=== PATIENT | female | born 2000 | race Caucasian/White ===

== ENCOUNTER 2023-04-26 15:40 | Inpatient (IN) ==
[2023-04-27] MEDS ORDERED: LIDOCAINE 1% LOCAL 20 ML VIAL INFIL PRN (14:50)
[2023-04-27] MEDS ORDERED: OXYTOCIN 30 UNITS/NSS 30 UNITS/500 ML BAG IV PRN ×2 (14:50)
--- NOTE | 2023-04-27 15:05 | History & Physical Report ---
Date of Service April 27, 2023 Assessment & Plan (1) Insulin controlled gestational diabetes mellitus (GDM) during : Plan: Admit to L&D. EFM/toco. Labs. Check glucose Q2h, then hourly when in active labor. Pitocin for induction of labor. Patient agrees with plan. Admission and Anticipated Discharge Date Admission Date: April 27, 2023 History of Present Illness Chief Complaint: IOL Primary Care Provider: YELENA Nicole 23yo @ 39 05/30 here for IOL for GDMA2. Feeling well, no concerns. + movement, no vaginal bleeding. No leaking. Not feeling contractions. GDM on insulin - 10u at night *Wkly NSTs @32wks and Twice wkly @36wks *Serial growth US @28wks *Deliver by [facility]--IOL on 04/26 Allergies Allergy/AdvReac Type Severity Reaction Status Date / Time No Known Allergies Allergy Verified 04/27/23 16:03 Home Medications Medication Instructions Recorded Confirmed Type prenat.vits,chester,[id number] 1 tab PO DAILY 09/20/22 04/27/23 History acetone (urine) test (Ketone Urine #50 ea 03/02/23 04/25/23 Rx Test strips) blood sugar diagnostic (OneTouch #150 ea 03/02/23 04/25/23 Rx Verio test strips) blood-glucose meter (OneTouch #1 ea 03/02/23 04/25/23 Rx Verio Reflect Meter) lancets 33 gauge (OneTouch Delica #150 ea 03/02/23 04/25/23 Rx Plus Lancet) ferrous sulfate 65 mg PO DAILY 03/19/23 04/27/23 History pen needle, diabetic 32 gauge x #50 ea 03/23/23 04/25/23 Rx /32" (BD Ultra-Fine Meera Pen Needle) insulin NPH isoph U-100 human 100 10 unit (0.1 mL) subcut .QHS #15 mL 04/03/23 04/27/23 Rx unit/mL (3 mL) subcutaneous pen (Humulin N NPH U-100 Insulin KwikPen) Patient History Medical History Acne Hx of gastroesophageal reflux (GERD) Surgical History History of anesthesia reaction History of wisdom tooth extraction S/P arthroscopy of right shoulder Family History Mother Lupus (systemic lupus erythematosus) Grandmother [place] chorea Other Diabetes No family history of adverse response to anesthesia Denies family history of Ovarian cancer Prostate cancer Myocardial infarction Breast cancer Lung cancer Colorectal cancer Social History (Updated 01/05/23 @ 09:16 by Brandi Andrew) Smoking Status: Never smoker Second Hand Exposure: No; Do You Dip or Chew Tobacco: No; Hx Alcohol Use: Yes Alcohol type: beer and hard liquor Alcohol Intake Frequency: Monthly or Less Hx Substance Use: No Preferred Language: Turkish Communication Ability: Effective Visual Impairment: No Limitations Hearing Ability: Normal [employer] Required: No Beliefs That Will Affect Care: None marital status: Single marital status details: Brandon (31) [phone] Current Living Situation: Significant Other Current Living Situation Comment: lives with fob current occupational status: employed current occupation: [employer]- Other Information That Helps Us Care for You: No Feels Safe at Home: Yes Safety Concerns: Feels Safe At This Time Childhood Exposure to Second-Hand Smoke: No Diet: regular caffeine: No Dental Care, Regularly: Yes Physical Activity Frequency: 1-2 Times per Week Seatbelt Use: always Sunscreen Use: Yes Assistive Devices: None Review of Systems All systems reviewed & are unremarkable except as noted in HPI & below Physical Exam Physical Exam: FHT Cat 1 Benavides rare SVE 4/70/-1 Constitutional: WD/WN, vitals as above Respiratory: normal respiratory effort, lungs clear to auscultation no respiratory distress Cardiovascular: Rate/Rhythm: regular rate and regular rhythm Gastrointestinal (Abdomen): Inspection/Auscultation: abdomen normal to inspection Percussion/Palpation: abdomen soft; abdomen nontender Gravid. No s/s chorio or abruption. Skin: no rashes, warm and dry Psychiatric: A+Ox3, euthymic affect Results & Data Vital Signs (Past 12 Hours) Vital Signs Temp Pulse Resp BP 04/27/23 14:53 88 124/65 04/27/23 14:51 20 04/27/23 14:51 36.9 C 20 Coding Level of Care Code None Diagnoses Insulin controlled gestational diabetes mellitus (GDM) during O24.414
[2023-04-27 15:30] LABS: Hemoglobin 10.5 g/dl (12.0-16.0); Mean Corpuscular Hemoglobin 27.8 pg (25.0-34.0); Mean Corpuscular Hgb Conc 31.8 g/dL (32.0-36.0); Mean Corpuscular Volume 87.3 fL (80.0-100.0); Mean Platelet Volume 10.7 fL (9.4-12.4); Platelet Count 260 K/uL (130-400); RDW Coefficient of Variation 12.8 % (11.5-14.5); RDW Standard Deviation 40.6 fL (36.4-46.3); Red Blood Count 3.78 M/uL (4.20-5.40); White Blood Count 10.25 K/ul (4.8-10.8)
[2023-04-27 15:45] LABS: Alanine Aminotransferase 19 U/L (7-52); Albumin Globulin Ratio 1.1 (0.9-2); Albumin Level 3.4 gm/dl (3.4-5.0); Alkaline Phosphatase 194 U/L (34-104); Anion Gap 8 (3-11); Aspartate Aminotransferase 18 U/L (13-39); BUN Creatinine Ratio 14.6 (10-20); Bilirubin,Total 0.4 mg/dl (0.2-1.0); Blood Urea Nitrogen 7 mg/dl (6-23); Calcium 8.8 mg/dl (8.6-10.3); Carbon Dioxide 21 mmol/L (21-32); Chloride 107 mmol/L (98-107); Creatinine Clr Calc Pharmacy 235.4 ml/min; Est GFR (African American) > 150.0 ml/min; Est GFR (Non-African American) 139.2 ml/min; Globulin 3.2 gm/dl (2.5-4.0); Glucose 75 mg/dl (70-99(Fasting)); Potassium 3.9 mmol/L (3.5-5.1); Sodium 136 mmol/L (136-145); Total Protein 6.6 gm/dl (6.0-8.3)
[2023-04-27] MEDS: LACTATED RINGER'S 1,000 ML IV PRN ×2 (16:06→21:55)
[2023-04-27] MEDS ORDERED: fentaNYL citrate PF 100 MCG/2 ML VIAL ONE (21:45)
[2023-04-27] MEDS ORDERED: fentANYL 2 MCG/ML BUPIVacaine 0.125%-NSS 100ML BAG ONE (21:45)
[2023-04-27] MEDS ORDERED: ePHEDrine sulfate 50 MG/ML AMP ONE (21:45)
[2023-04-27] MEDS ORDERED: SODIUM CHLORIDE 0.9% PF INJ 10 ML VIAL ONE (21:45)
[2023-04-27] MEDS ORDERED: LIDOCAINE 2%/EPINEPHRINE 1:200,000 20 ML PF ONE (21:46)
[2023-04-27] MEDS ORDERED: BUPIVACAINE 0.25% PF 30 ML VIAL ONE (21:46)
[2023-04-27] MEDS ORDERED: SODIUM CHLORIDE 0.9% PF INJ 10 ML VIAL EPI PRN (21:51)
[2023-04-27] MEDS ORDERED: NALOXONE HCL 1 MG in SODIUM CHLORIDE 0.9% 1,000 ML IV PRN (21:51)
[2023-04-27] MEDS ORDERED: fentaNYL citrate PF 100 MCG/2 ML VIAL EPI PRN (21:51)
[2023-04-27] MEDS ORDERED: fentANYL 2 MCG/ML BUPIVacaine 0.125%-NSS 100ML BAG EPI PRN (21:51)
[2023-04-27] MEDS ORDERED: NALOXONE HCL 0.4 MG/1 ML VIAL/CARP IV PRN (21:51)
[2023-04-27] MEDS ORDERED: diphenhydrAMINE 50 MG/ML VIAL IV PRN (21:51)
[2023-04-27] MEDS ORDERED: LIDOCAINE 2%/EPINEPHRINE 1:200,000 20 ML PF EPI STA (21:51)
[2023-04-27] MEDS ORDERED: LIDOCAINE 2% MPF LOCAL 5 ML VIAL EPI PRN (21:51)
[2023-04-27] MEDS ORDERED: ePHEDrine sulfate 50 MG/ML AMP IV PRN (21:51)
[2023-04-27] MEDS ORDERED: BUPIVACAINE 0.25% PF 30 ML VIAL EPI PRN (21:51)
[2023-04-27] MEDS ORDERED: ONDANSETRON INJ 2 MG/ML 2 ML VIAL IV PRN (21:51)
[2023-04-27] MEDS ORDERED: SODIUM CHLORIDE 0.9% PF INJ 10 ML VIAL EPI STA (21:51)
[2023-04-27] MEDS ORDERED: NALBUPHINE HCL 5 MG in SYRINGE 0 ML IV PRN (21:51)
[2023-04-27] MEDS ORDERED: fentaNYL citrate PF 100 MCG/2 ML VIAL EPI STA (21:51)
[2023-04-27] MEDS ORDERED: ROPIVACAINE 0.5% PF 5 MG/ML 20 ML VIAL EPI PRN (21:51)
[2023-04-27] MEDS ORDERED: BUPIVACAINE 0.25% PF 30 ML VIAL EPI STA (21:51)
--- NOTE | 2023-04-27 21:52 | Anesthesiology Consultation ---
Date of Service April 27, 2023 Assessment & Plan (1) Encounter for pre-operative examination: Chart Review Chart Review: Patient NOT seen in Pre Admission Testing and Acceptable Risk for Labor Epidural Consults Requested none History Height/Weight Height: 5 ft 6 in Weight: 113.852 kg Allergies Allergy/AdvReac Type Severity Reaction Status Date / Time No Known Allergies Allergy Verified 04/27/23 16:03 Medications Home Medications Medication Instructions Recorded Confirmed Last Taken prenat.vits,chester,[id number] 1 tab PO DAILY 09/20/22 04/27/23 04/26/23 21:00 acetone (urine) test (Ketone Urine #50 ea 03/02/23 04/25/23 Unknown Test strips) blood sugar diagnostic (OneTouch #150 ea 03/02/23 04/25/23 Unknown Verio test strips) blood-glucose meter (OneTouch #1 ea 03/02/23 04/25/23 Unknown Verio Reflect Meter) lancets 33 gauge (OneTouch Delica #150 ea 03/02/23 04/25/23 Unknown Plus Lancet) ferrous sulfate 65 mg PO DAILY 03/19/23 04/27/23 04/26/23 21:00 pen needle, diabetic 32 gauge x #50 ea 03/23/23 04/25/23 Unknown 532" (BD Ultra-Fine Meera Pen Needle) insulin NPH isoph U-100 human 100 10 unit (0.1 mL) subcut .QHS #15 mL 04/03/23 04/27/23 04/26/23 21:00 unit/mL (3 mL) subcutaneous pen (Humulin N NPH U-100 Insulin KwikPen) Active Medications Generic Name Dose Route Start Last Admin Trade Name Freq PRN Reason Stop Dose Admin Oxytocin 30 units in 500 mls @ 17 mls/hr 04/27/23 14:50 04/27/23 21:10 Pitocin 30 Units/Nss IV 04/29/23 14:49 1.02 units/hr .Q24H PRN 17 mls/hr Labor Induction/Augmentation Titration Protocol 1.02 UNITS/HR Lactated Ringer's 1,000 mls @ 125 mls/hr 04/27/23 14:50 04/27/23 21:55 Lr IV 04/29/23 14:49 999 mls/hr .Q8H PRN Administration L&D Protocol Protocol Past Medical History Medical History (Updated 04/27/23 @ 21:52 by Hilton Arroyo MD) Encounter for pre-operative examination Gestational diabetes Acne Hx of gastroesophageal reflux (GERD) Exercise / Class Metabolic Activity II 4-5 Yardwork/Stairs/Walk up hill Past Family History Family History Mother Lupus (systemic lupus erythematosus) Grandmother [place] chorea Other Diabetes No family history of adverse response to anesthesia Denies family history of Ovarian cancer Prostate cancer Myocardial infarction Breast cancer Lung cancer Colorectal cancer Past Surgical History Surgical History S/P arthroscopy of right shoulder History of anesthesia reaction "woke up during wisdom tooth surgery" History of wisdom tooth extraction Social History Smoking Status: Never smoker Do You Dip or Chew Tobacco: No Hx Alcohol Use: Yes Alcohol type: beer and hard liquor alcohol intake frequency: a few times a month Hx Substance Use: No substance use type: does not use Physical Exam Vital Signs Last Vital Signs Temp 36.8 C 04/27/23 21:29 Pulse 102 H 04/27/23 22:12 Resp 18 04/27/23 21:29 BP 142/72 H 04/27/23 22:12 Pulse Ox 98 04/27/23 22:12 Testing Laboratory Results 04/27/23 15:08 04/27/23 15:08 Blood Type O Positive 04/27/23 15:08 Antibody Screen NEGATIVE 04/27/23 15:08 04/27/23 04/27/23 04/27/23 21:13 19:08 17:11 POC Glucose 72 72 71 04/27/23 04/27/23 15:12 15:11 POC Glucose 70 66 L*
[2023-04-28] MEDS ORDERED: DIPHTHERIA/TETANUS/PERTUSSIS Vaccine (Tdap, Age 7+yrs) 0.5mL SYR/VL IM ONE (01:21)
[2023-04-28] MEDS ORDERED: oxyCODONE/ACETAMINOPHEN 5mg/325mg TAB PO PRN (01:21)
[2023-04-28] MEDS ORDERED: OXYTOCIN 30 UNITS/NSS 30 UNITS/500 ML BAG IV PRN (01:21)
[2023-04-28] MEDS ORDERED: HYDROCORTISONE ACETATE 25 MG SUPP PR PRN (01:21)
[2023-04-28] MEDS ORDERED: ACETAMINOPHEN 325 MG TAB PO PRN (01:21)
[2023-04-28] MEDS ORDERED: IBUPROFEN 600 MG TAB PO PRN (01:21)
[2023-04-28] MEDS ORDERED: BENZOCAINE 20% SPRY 85 APPLN/85 GM CAN EXT PRN (01:21)
--- NOTE | 2023-04-28 01:30 | Delivery Summary ---
Vaginal Delivery Summary Date of Service April 28, 2023 Vaginal Delivery Summary and 2nd Degree LAC Patient is a 23-year-old 1 P0 female EDC 05/02/[birth year]23 who presented for induction at 39 weeks 3 days because of GDM on insulin. Pitocin induction was begun. Membranes were ruptured for clear fluid. She requested epidural analgesia which was effective. She progressed to full dilation with the urge to push. She pushed effectively over intact perineum for delivery of a viable male infant. After the head was delivered the posterior left arm was presenting next and was delivered. Following this, the rest the delivered easily. He was placed on the mother's abdomen for further attention and drying. He was vigorous crying and moving all 4 limbs. After cord blood was obtained, the placenta was expressed intact with a three-vessel cord. bleeding was controlled with dilute Pitocin and fundal massage. A second-degree perineal laceration was repaired with 3-0 chromic in the usual fashion. Superficial left labial laceration was not bleeding and therefore was not repaired. Estimated blood loss was 350 cc. Mother and doing well after delivery. MNP Vaginal Delivery Charge Delivery Type Details: and 2nd Degree LAC
--- NOTE | 2023-04-28 03:00 | Anesthesia Procedure Note ---
Date of Service April 28, 2023 Anesthesia Post Epidural Note Vital Signs Vital Signs: Temp Pulse Resp BP Pulse Ox 36.4 C L 86 16 106/55 L 96 04/27/23 23:33 04/28/23 02:54 04/28/23 02:39 04/28/23 02:54 04/28/23 01:27 Pain Intensity Bilateral Lower Abdomen: Pain Intensity: 2 Notes Mental Status: alert / awake / arousable and participated in evaluation Patient Amnestic to Procedure: No Nausea / Vomiting: adequately controlled Pain: adequately controlled Airway Patency, RR, SpO2: stable & adequate BP & HR: stable & adequate Hydration State: stable & adequate Neuraxial Anesthesia: was administered and sensory block is resolving Anesthetic Complications: no major complications apparent and Pt Satisfied with anesthetic care Epidural: Removed without complications and With tip intact
--- NOTE | 2023-04-28 07:37 | Obstetrical Progress Note ---
Date of Service April 28, 2023 Assessment & Plan (1) Encounter for care and examination after delivery: satisfactory recovery continue current care plan Subjective Ambulation: ambulating normally Voiding: no voiding problems Passing Gas:: Yes Diet Tolerance:: regular diet Lochia:: Moderate Feeding Type:: breast feeding doing well - no cramping Review of Systems All systems reviewed & are unremarkable except as noted in HPI & below Physical Exam Constitutional WD/WN, vitals as above Psychiatric A+Ox3, euthymic affect Genitourinary OB Exam Abdomen: + fundal height Fundus: + firm and + relation to umbilicus (at U) Results & Data Vital Signs (Past 12 Hours) Vital Signs Temp Pulse Pulse Resp BP BP Pulse Ox 04/28/23 03:52 97.9 F 96 H 14 122/74 04/28/23 03:09 98.8 F 18 04/28/23 03:09 86 105/51 L 04/28/23 02:54 86 106/55 L 04/28/23 02:39 16 04/28/23 02:39 84 107/56 L 04/28/23 02:24 95 H 104/58 L 04/28/23 02:09 16 04/28/23 02:09 96 H 109/55 L 04/28/23 01:54 16 04/28/23 01:54 90 110/59 L 04/28/23 01:39 18 04/28/23 01:39 90 109/54 L 04/28/23 01:27 98 H 96 04/28/23 01:25 18 04/28/23 01:25 91 H 102/55 L 04/28/23 01:22 112 H 95 04/28/23 01:17 104 H 95 04/28/23 01:12 107 H 96 04/28/23 01:09 18 04/28/23 01:09 100 H 97/50 L 04/28/23 01:07 98 H 95 04/28/23 01:02 104 H 97 04/28/23 00:59 99 H 115/54 L 04/28/23 00:57 98 H 96 04/28/23 00:52 109 H 78 L 04/28/23 00:47 105 H 128/60 98 04/28/23 00:42 101 H 98 04/28/23 00:41 114 H 83 L 04/28/23 00:37 96 H 98 04/28/23 00:35 122 H 85 L 04/28/23 00:32 100 H 98 04/28/23 00:30 142 H 155/97 H 04/28/23 00:29 127 H 89 L 04/28/23 00:27 108 H 100 04/28/23 00:24 106 H 86 L 04/28/23 00:22 94 H 100 04/28/23 00:17 106 H 100 04/28/23 00:15 102 H 18 143/78 H 04/28/23 00:12 92 H 99 04/28/23 00:07 82 98 04/28/23 00:02 84 97 04/28/23 00:01 83 16 116/59 L 04/27/23 23:57 82 99 04/27/23 23:52 88 99 04/27/23 23:47 81 99 04/27/23 23:45 78 117/58 L 04/27/23 23:42 85 99 04/27/23 23:37 87 99 04/27/23 23:33 18 04/27/23 23:33 97.5 F L 18 04/27/23 23:32 86 99 04/27/23 23:29 87 18 111/58 L 04/27/23 23:27 94 H 99 04/27/23 23:22 94 H 99 04/27/23 23:17 91 H 99 04/27/23 23:15 86 18 116/60 04/27/23 23:12 92 H 100 04/27/23 23:07 89 99 04/27/23 23:02 86 100 04/27/23 23:01 90 18 118/57 L 04/27/23 22:57 85 100 04/27/23 22:52 92 H 98 04/27/23 22:47 88 99 04/27/23 22:45 86 18 113/58 L 04/27/23 22:42 88 99 04/27/23 22:37 94 H 98 04/27/23 22:32 93 H 98 04/27/23 22:29 86 18 120/59 L 04/27/23 22:27 99 04/27/23 22:27 96 H 04/27/23 22:27 88 118/60 04/27/23 22:24 88 136/64 04/27/23 22:22 91 H 99 04/27/23 22:20 86 133/63 04/27/23 22:18 82 18 132/65 04/27/23 22:17 87 99 04/27/23 22:15 86 18 138/68 04/27/23 22:12 98 04/27/23 22:12 102 H 04/27/23 22:12 93 H 142/72 H 04/27/23 22:07 94 H 97 04/27/23 22:02 97 H 100 04/27/23 21:57 93 H 99 04/27/23 21:52 86 99 04/27/23 21:29 18 04/27/23 21:29 98.2 F 18 04/27/23 21:12 88 111/60 04/27/23 20:12 86 118/56 L O2 Del Method 04/28/23 03:52 Room Air 04/28/23 03:09 04/28/23 03:09 04/28/23 02:54 04/28/23 02:39 04/28/23 02:39 04/28/23 02:24 04/28/23 02:09 04/28/23 02:09 04/28/23 01:54 04/28/23 01:54 04/28/23 01:39 04/28/23 01:39 04/28/23 01:27 04/28/23 01:25 04/28/23 01:25 04/28/23 01:22 04/28/23 01:17 04/28/23 01:12 04/28/23 01:09 04/28/23 01:09 04/28/23 01:07 04/28/23 01:02 04/28/23 00:59 04/28/23 00:57 04/28/23 00:52 04/28/23 00:47 04/28/23 00:42 04/28/23 00:41 04/28/23 00:37 04/28/23 00:35 04/28/23 00:32 04/28/23 00:30 04/28/23 00:29 04/28/23 00:27 04/28/23 00:24 04/28/23 00:22 04/28/23 00:17 04/28/23 00:15 04/28/23 00:12 04/28/23 00:07 04/28/23 00:02 04/28/23 00:01 04/27/23 23:57 04/27/23 23:52 04/27/23 23:47 04/27/23 23:45 04/27/23 23:42 04/27/23 23:37 04/27/23 23:33 04/27/23 23:33 04/27/23 23:32 04/27/23 23:29 04/27/23 23:27 04/27/23 23:22 04/27/23 23:17 04/27/23 23:15 04/27/23 23:12 04/27/23 23:07 04/27/23 23:02 04/27/23 23:01 04/27/23 22:57 04/27/23 22:52 04/27/23 22:47 04/27/23 22:45 04/27/23 22:42 04/27/23 22:37 04/27/23 22:32 04/27/23 22:29 04/27/23 22:27 04/27/23 22:27 04/27/23 22:27 04/27/23 22:24 04/27/23 22:22 04/27/23 22:20 04/27/23 22:18 04/27/23 22:17 04/27/23 22:15 04/27/23 22:12 04/27/23 22:12 04/27/23 22:12 04/27/23 22:07 04/27/23 22:02 04/27/23 21:57 04/27/23 21:52 04/27/23 21:29 04/27/23 21:29 04/27/23 21:12 04/27/23 20:12
[2023-04-28] MEDS: PRENATAL VITAMIN 1 TAB PO SCH (08:41)
[2023-04-28] MEDS: DOCUSATE SODIUM 100 MG CAP PO SCH ×2 (08:41→19:51)
[2023-04-29 07:09] LABS: Hematocrit (blood only) 27.5 % (37.0-47.0); Mean Corpuscular Hemoglobin 28.4 pg (25.0-34.0); Mean Corpuscular Hgb Conc 32.7 g/dL (32.0-36.0); Mean Corpuscular Volume 86.8 fL (80.0-100.0); Platelet Count 222 K/uL (130-400); RDW Coefficient of Variation 12.7 % (11.5-14.5); RDW Standard Deviation 40.4 fL (36.4-46.3); Red Blood Count 3.17 M/uL (4.20-5.40); White Blood Count 9.28 K/ul (4.8-10.8)
[2023-04-29] MEDS: PRENATAL VITAMIN 1 TAB PO SCH (07:44)
[2023-04-29] MEDS: DOCUSATE SODIUM 100 MG CAP PO SCH (07:44)
--- NOTE | 2023-04-29 08:35 | Obstetrical Progress Note ---
Date of Service April 29, 2023 Assessment & Plan (1) Encounter for care and examination after delivery: Day 1 status post vaginal delivery. Patient doing well. Stable for discharge if preferred. Subjective Ambulation: ambulating normally Voiding: no voiding problems Passing Gas:: Yes Diet Tolerance:: regular diet Lochia:: Moderate Feeding Type:: breast feeding Denies calf tenderness Physical Exam Constitutional WD/WN, vitals as above Respiratory normal respiratory effort; no respiratory distress and no labored breathing Gastrointestinal (Abdomen) Inspection/Auscultation: abdomen normal to inspection; abdomen not distended Percussion/Palpation: abdomen soft; abdomen nontender, no guarding and abdomen not rigid Genitourinary OB Exam Abdomen: + fundal height Fundus: + firm and + relation to umbilicus (Below); not tender or not boggy Results & Data Vital Signs (Past 12 Hours) Vital Signs Temp Pulse Resp BP O2 Del Method 04/29/23 08:10 36.7 C 77 16 137/83 Room Air 04/29/23 00:14 36.6 C 93 H 16 135/78 Room Air
[2023-04-29] MEDS ORDERED: bisacodyL 5 MG TABEC PO SCH (20:00)
[2023-04-30] MEDS ORDERED: bisacodyL 10 MG SUPP PR PRN (01:21)
== END 2023-04-29 14:00 | disposition home or self-care (01) | DRG 807 ==
LOC: 4S1 04-27 14:36 → 4E2 04-28 03:46